=== PATIENT | male | born 1960 | race Caucasian/White ===

== ENCOUNTER 2019-01-17 00:46 | Inpatient (IN) | payer OTHER ==
[~2019-01-17] VITALS: Ht 167.6 cm; Wt 121.3 kg
[2019-01-17] MEDS ORDERED: LABETALOL 5MG/ML, 20ML IVPush ONE (01:00)
[2019-01-17] MEDS ORDERED: SODIUM CHLORIDE FLUSH 10ML SYR IVF ONE (01:00)
[2019-01-17] MEDS ORDERED: HEPARIN 25,000 UNITS/500ML PMX 500 ML ONE (01:03)
--- NOTE | 2019-01-17 01:08 | NUR ---
PER PHARMACY AND ACS PROTOCOL, CONTINUING TO RUN HEPARIN AT 1000U/HR
[2019-01-17] MEDS ORDERED: LABETALOL 5MG/ML, 20ML ONE (01:10)
[2019-01-17] MEDS ORDERED: NITROGLYCERIN/D5W PMX 250 ML ONE (01:29)
[2019-01-17] MEDS ORDERED: METOPROLOL 1 MG/ML, 5ML ONE (01:29)
[2019-01-17] MEDS ORDERED: NITROGLYCERIN/D5W PMX 250 ML IV PRN ×3 (01:30→02:15)
[2019-01-17] MEDS ORDERED: HEPARIN 5,000 UNITS/ML, 1ML IV PRN (01:30)
[2019-01-17] MEDS ORDERED: METOPROLOL 1 MG/ML, 5ML IVPush ONE (01:30)
[2019-01-17] MEDS ORDERED: HEPARIN 5,000 UNITS/ML, 1ML IV ONE (01:30)
[2019-01-17] MEDS ORDERED: HEPARIN 25,000 UNITS/500ML PMX 500 ML IV PRN (01:30)
--- NOTE | 2019-01-17 01:41 | NUR ---
PT RESTING IN BED, NO COMPLAINTS AT THIS TIME, NITRO DRIP STARTED
[2019-01-17 01:43] LABS: ALBUMIN 3.2 g/dL (3.4-5.0); ANION GAP 4 mmol/L (5-15); CALCIUM 8.9 mg/dL (8.5-10.1); CHLORIDE 105 mmol/L (98-107)
[2019-01-17 02:15] LABS: INTERNATIONAL NORMALIZED RATIO 0.97 (0.93-1.1); PROTHROMBIN TIME 10.2 Seconds (9.6-11.5)
[2019-01-17] MEDS ORDERED: ASPIRIN 325 MG TABLET EC PO ONE (02:30)
[2019-01-17 02:59] LABS: CHOL/HDL RATIO 7.1; LDL/HDL RATIO 4.7 (0.5-3.0)
--- NOTE | 2019-01-17 03:03 | NUR ---
PT RESTING CALMLY, NAD, PROVIDED PT WITH WARM BLANKET, DENIES FURTHER NEEDS, IV HEPARIN AND NITRO GTT'S INFUSING PER PROTOCOL, SEE MAR. MONITORS IN PLACE, CALL LIGHT WITHIN REACH
[2019-01-17 04:37] VITALS: BP 162/94
[2019-01-17 08:55] LABS: CHOLESTEROL, TOTAL 230 mg/dL (140-239); TRIGLYCERIDES 305 mg/dL (50-200); VLDL CHOLESTEROL 61 mg/dL (0-25)
[2019-01-17 08:58] LABS: CHOL/HDL RATIO 7.7; HDL CHOL % 13 % (26-37); HDL CHOLESTEROL (DIRECT) 30 mg/dL (40-60); LDL CHOLESTEROL,CALCULATED 139 mg/dL (54-169); LDL/HDL RATIO 4.6 (0.5-3.0)
[2019-01-17] MEDS: SODIUM CHLORIDE FLUSH 10ML SYR IVF SCH ×3 (09:00→21:02)
[2019-01-17 09:33] LABS: BASOPHILS # (AUTO) 0.05 x10^3/uL (0-0.1); BASOPHILS % (AUTO) 1 % (0-1); EOSINOPHILS # (AUTO) 0.17 x10^3/uL (0-0.4); EOSINOPHILS % (AUTO) 2 % (1-7); LYMPHOCYTES # (AUTO) 1.27 x10^3/uL (1-3.4); LYMPHOCYTES % (AUTO) 13 % (22-44); MD NO; MEAN CORPUSCULAR HEMOGLOBIN 31.1 pg (27.5-34.5); MEAN CORPUSCULAR HGB CONC 32.8 g/dL (33.2-36.2); MEAN CORPUSCULAR VOLUME 94.9 fL (81-97); MEAN PLATELET VOLUME 9.6 fL (7.4-10.4); MONOCYTES # (AUTO) 0.63 x10^3/uL (0.2-0.8); MONOCYTES % (AUTO) 7 % (2-9); NEUTROPHILS # (AUTO) 7.36 x10^3/uL (1.8-6.8); NEUTROPHILS % (AUTO) 78 % (42-75); PLATELET COUNT 166 x10^3/uL (130-400); RED BLOOD COUNT 5.85 x10^6/uL (4.38-5.82); RED CELL DISTRIBUTION WIDTH 13.6 % (9.4-14.8)
[2019-01-17 09:57] LABS: ALANINE AMINOTRANSFERASE 30 U/L (12-78); ALBUMIN 3.1 g/dL (3.4-5.0); ANION GAP 10 mmol/L (5-15); CALCIUM 8.5 mg/dL (8.5-10.1); CHLORIDE 106 mmol/L (98-107); CREATININE 1.38 mg/dL (0.7-1.3)
[2019-01-17 09:59] LABS: ALKALINE PHOSPHATASE 94 U/L (45-117); BILIRUBIN,TOTAL 1.1 mg/dL (0.2-1.0); TOTAL PROTEIN 6.6 g/dL (6.4-8.2)
[2019-01-17 10:56] LABS: MICROSCOPIC AUTO
[2019-01-17 10:57] LABS: CULTURE INDICATED? NO
[2019-01-17 11:08] LABS: AMPHETAMINE SCREEN, URINE Negative (Negative); BARBITURATE SCREEN, URINE Negative (Negative); BENZODIAZEPINE SCREEN, URINE Negative (Negative); CANNABINOID SCREEN, URINE Negative (Negative); COCAINE SCREEN, URINE Negative (Negative); METHADONE SCREEN, URINE Negative (Negative); OPIATE SCREEN, URINE Positive (Negative)
[2019-01-17 12:24] LABS: HEMOGLOBIN A1C 7.6 % (4.2-6.3)
[2019-01-17] MEDS ORDERED: GLUCAGON 1 MG IM PRN (13:00)
[2019-01-17] MEDS ORDERED: DEXTROSE 4 GM TAB.CHEW PO PRN (13:00)
[2019-01-17] MEDS ORDERED: DEXTROSE 50%, 50ML SYRINGE IVPush PRN (13:00)
[2019-01-17] MEDS ORDERED: HYDROcodone/APAP 5/325 TABLET PO PRN (13:00)
[2019-01-17] MEDS ORDERED: ACETAMINOPHEN 325 MG TABLET PO PRN (13:00)
[2019-01-17] MEDS: INSULIN LISPRO 100 UNITS/ML, PEN SQ-INSULIN SCH ×2 (15:21→21:05)
[2019-01-17] MEDS ORDERED: HEPARIN 1,000 UNITS/ML, 10ML ONE (15:52)
[2019-01-17] MEDS ORDERED: LIDOCAINE-MPF 1%, 5ML ONE (15:52)
[2019-01-17] MEDS ORDERED: BIVALIRUDIN 250 MG ONE (15:52)
[2019-01-17] MEDS ORDERED: TICAGRELOR 90 MG TABLET ONE (15:52)
[2019-01-17] MEDS ORDERED: MIDAZOLAM 1 MG/ML, 5ML ONE (15:52)
[2019-01-17] MEDS ORDERED: FENTANYL PF 100 MCG/2ML ONE (15:52)
[2019-01-17] MEDS ORDERED: VERAPAMIL 2.5 MG/ML, 2ML ONE (15:52)
[2019-01-17] MEDS ORDERED: AMLODIPINE 5 MG TABLET PO ONE (17:00)
[2019-01-17] MEDS ORDERED: ENALAPRILAT 1.25 MG/ML, 1ML ONE (17:06)
[2019-01-17] MEDS: ENALAPRILAT 1.25 MG/ML, 1ML IV PRN ×2 (17:08→21:30)
[2019-01-17] MEDS: ATORVASTATIN 80 MG TABLET PO SCH (21:03)
[2019-01-18] MEDS ORDERED: NITROGLYCERIN/D5W PMX 250 ML IV PRN (02:15)
[2019-01-18] MEDS: ENALAPRILAT 1.25 MG/ML, 1ML IV PRN (03:40)
[2019-01-18 04:00] VITALS: BP 142/81
[2019-01-18 04:44] LABS: BASOPHILS # (AUTO) 0.01 x10^3/uL (0-0.1); BASOPHILS % (AUTO) 0 % (0-1); EOSINOPHILS # (AUTO) 0.23 x10^3/uL (0-0.4); EOSINOPHILS % (AUTO) 2 % (1-7); LYMPHOCYTES # (AUTO) 0.92 x10^3/uL (1-3.4); LYMPHOCYTES % (AUTO) 9 % (22-44); MD NO; MEAN CORPUSCULAR HEMOGLOBIN 31.3 pg (27.5-34.5); MEAN CORPUSCULAR HGB CONC 32.8 g/dL (33.2-36.2); MEAN CORPUSCULAR VOLUME 95.2 fL (81-97); MEAN PLATELET VOLUME 8.9 fL (7.4-10.4); MONOCYTES # (AUTO) 0.79 x10^3/uL (0.2-0.8); MONOCYTES % (AUTO) 8 % (2-9); NEUTROPHILS % (AUTO) 80 % (42-75); PLATELET COUNT 151 x10^3/uL (130-400); RED BLOOD COUNT 5.78 x10^6/uL (4.38-5.82); RED CELL DISTRIBUTION WIDTH 13.6 % (9.4-14.8)
[2019-01-18 05:01] LABS: ALANINE AMINOTRANSFERASE 26 U/L (12-78); ANION GAP 6 mmol/L (5-15); CALCIUM 8.7 mg/dL (8.5-10.1); CHLORIDE 106 mmol/L (98-107); CREATININE 1.12 mg/dL (0.7-1.3)
[2019-01-18 05:03] LABS: ALKALINE PHOSPHATASE 92 U/L (45-117); BILIRUBIN,TOTAL 1.3 mg/dL (0.2-1.0); TOTAL PROTEIN 6.8 g/dL (6.4-8.2)
[2019-01-18] MEDS: METOPROLOL SUCCINATE 25 MG TAB.ER.24H PO SCH (05:46)
[2019-01-18] MEDS ORDERED: ASPIRIN 325 MG TABLET EC PO SCH (06:00)
[2019-01-18] MEDS: INSULIN LISPRO 100 UNITS/ML, PEN SQ-INSULIN SCH ×4 (07:00→20:31)
[2019-01-18] MEDS ORDERED: ENALAPRIL 5MG TABLET ONE (08:24)
[2019-01-18] MEDS: CLOPIDOGREL 75 MG TABLET PO SCH (08:40)
[2019-01-18] MEDS: CHLORTHALIDONE 25 MG TABLET PO SCH (08:40)
[2019-01-18] MEDS: ENALAPRIL 10 MG TABLET PO SCH ×2 (08:41→20:22)
[2019-01-18] MEDS: SODIUM CHLORIDE FLUSH 10ML SYR IVF SCH ×4 (08:42→20:23)
[2019-01-18 14:27] VITALS: BP 153/85
[2019-01-18 19:43] VITALS: BP 156/83
[2019-01-18] MEDS: ATORVASTATIN 80 MG TABLET PO SCH (20:22)
[2019-01-19 02:43] VITALS: BP 164/76
[2019-01-19 05:23] LABS: BASOPHILS # (AUTO) 0.13 x10^3/uL (0-0.1); BASOPHILS % (AUTO) 1 % (0-1); EOSINOPHILS # (AUTO) 0.25 x10^3/uL (0-0.4); EOSINOPHILS % (AUTO) 3 % (1-7); LYMPHOCYTES # (AUTO) 0.99 x10^3/uL (1-3.4); LYMPHOCYTES % (AUTO) 10 % (22-44); MD NO; MEAN CORPUSCULAR HEMOGLOBIN 32.1 pg (27.5-34.5); MEAN CORPUSCULAR HGB CONC 33.4 g/dL (33.2-36.2); MEAN CORPUSCULAR VOLUME 96.1 fL (81-97); MEAN PLATELET VOLUME 9.2 fL (7.4-10.4); MONOCYTES # (AUTO) 0.59 x10^3/uL (0.2-0.8); MONOCYTES % (AUTO) 6 % (2-9); NEUTROPHILS % (AUTO) 80 % (42-75); PLATELET COUNT 163 x10^3/uL (130-400); RED BLOOD COUNT 5.73 x10^6/uL (4.38-5.82); RED CELL DISTRIBUTION WIDTH 13.9 % (9.4-14.8)
[2019-01-19 05:31] LABS: ANION GAP 5 mmol/L (5-15); CALCIUM 9.1 mg/dL (8.5-10.1); CHLORIDE 105 mmol/L (98-107)
[2019-01-19 05:32] LABS: CREATININE 1.19 mg/dL (0.7-1.3)
[2019-01-19] MEDS ORDERED: ASPIRIN 81 MG TABLET EC PO SCH (06:00)
[2019-01-19] MEDS: METOPROLOL SUCCINATE 25 MG TAB.ER.24H PO SCH (06:12)
[2019-01-19 06:50] VITALS: BP 136/80
[2019-01-19] MEDS: INSULIN LISPRO 100 UNITS/ML, PEN SQ-INSULIN SCH ×2 (07:09→11:49)
[2019-01-19] MEDS ORDERED: ASPI81TA45 PO (08:54)
[2019-01-19] MEDS ORDERED: ENAL10TA PO (08:54)
[2019-01-19] MEDS ORDERED: CHLO25TA PO (08:54)
[2019-01-19] MEDS ORDERED: METO25TA91 PO (08:54)
[2019-01-19] MEDS ORDERED: ATOR-2 PO (08:54)
[2019-01-19] MEDS ORDERED: CLOP75TA PO (08:54)
[2019-01-19] MEDS: CLOPIDOGREL 75 MG TABLET PO SCH (09:10)
[2019-01-19] MEDS: ENALAPRIL 10 MG TABLET PO SCH (09:10)
[2019-01-19] MEDS: SODIUM CHLORIDE FLUSH 10ML SYR IVF SCH ×2 (09:11)
[2019-01-19] MEDS: CHLORTHALIDONE 25 MG TABLET PO SCH (09:11)
[2019-01-19 12:50] VITALS: BP 148/81
== END 2019-01-19 16:25 | disposition home or self-care (01) | DRG 281 ==
LOC: ED 01:43 → EDIP 02:13 → CCU 04:08 → 5SO 01-18 14:10 → DCLOUNGE 01-19 16:15
PROVIDERS: ADMIT Internal Medicine; ATTEND Internal Medicine
PROC: 4A023N7 Measurement of Cardiac Sampling and Pressure, Left Heart, Percutaneous Approach (ICD-10-PCS; principal; 2019-01-17)
PROC: B2111ZZ Fluoroscopy of Multiple Coronary Arteries using Low Osmolar Contrast (ICD-10-PCS; 2019-01-17)
PROC: B2151ZZ Fluoroscopy of Left Heart using Low Osmolar Contrast (ICD-10-PCS; 2019-01-17)
DX: I21.4 Non-ST elevation (NSTEMI) myocardial infarction (principal); I16.1 Hypertensive emergency; Z68.41 Body mass index [BMI] 40.0-44.9, adult; N17.9 Acute kidney failure, unspecified; E66.9 Obesity, unspecified; E78.5 Hyperlipidemia, unspecified; F10.20 Alcohol dependence, uncomplicated; F17.210 Nicotine dependence, cigarettes, uncomplicated; I10 Essential (primary) hypertension; Z71.6 Tobacco abuse counseling; Z82.49 Family history of ischemic heart disease and other diseases of the circulatory system; Z91.19 Patient's noncompliance with other medical treatment and regimen
CPT/HCPCS: 36415; 71045; 80048; 80053; 80061; 80307; 81001; 82040; 82962; 83036; 83735; 84100; 84484; 85025; 85520; 85610; 85730; 87081; 93005; 93306; 93458; 96365; 96366; 96375; 99156; C1769; C1894; G0378; J0583; J1644; J2250; J3010; C1887; J1815; Q9967